=== PATIENT | male | born 1965 ===

== ENCOUNTER 2022-04-29 10:43 | Day surgery (SDC) | payer OTHER ==
[~2022-04-29] VITALS: Ht 172.7 cm; Wt 81.2 kg
[2022-04-29] VITALS (11 sets, daily range): BP systolic 110–128; BP diastolic 68–89
[~2022-04-29 10:43] MED LIST: ACET-2119 PO; ATOR20TA66 PO; CAPS42.514 TOP; IBUP-2697 PO; OMEP20TA43 PO; TOLN30CR6 TOP; ceFAZolin inj. 2,000 MG in dextrose 5%-water 100 ML IV ONE; famotidine 20mg tablet PO ONE; ringers solution, lacted 1,000 ML IV SCH
[2022-04-29] MEDS ORDERED: ROPIVAcaine 0.5% (5mg/ml) 30ml vial ONE ×2 (12:52→15:04)
[2022-04-29] MEDS ORDERED: epiNEPHrine 1 mg/ml inj ONE (12:53)
[2022-04-29] MEDS ORDERED: FENTANYL CITRATE/PF 50 MCG/1 ML VIAL ONE ×2 (15:02→16:24)
[2022-04-29] MEDS ORDERED: midazolam 1 mg/ML 2ml injection ONE (15:02)
[2022-04-29] MEDS ORDERED: ondansetron/PF 4mg/2ml inj ONE (15:03)
[2022-04-29] MEDS ORDERED: LIDOcaine 2% (20mg/ml) 5ml vial ONE (15:04)
[2022-04-29] MEDS ORDERED: propofol inj 20 ML IV ONE (15:04)
[2022-04-29] MEDS ORDERED: acetaminophen 1000 MG/100ml vial IV ONE (15:09)
[2022-04-29] MEDS ORDERED: sevoflurane 250ml liquid IH ONE (15:09)
[2022-04-29] MEDS ORDERED: morphine 4 MG/ML inj SYRINge IV PRN (15:10)
[2022-04-29] MEDS ORDERED: labetalol 20mg/4ml (5mg/ml) syringe IV PRN (15:10)
[2022-04-29] MEDS ORDERED: ringers solution, lacted 1,000 ML IV SCH (15:10)
[2022-04-29] MEDS ORDERED: ondansetron/PF 4mg/2ml inj IV PRN (15:10)
[2022-04-29] MEDS ORDERED: fentaNYL/PF 50MCG/1 ML 2ML syringe IV PRN ×2 (15:10)
[2022-04-29] MEDS ORDERED: hydrALAZINE 20mg/ml inj. IV PRN (15:10)
[2022-04-29] MEDS ORDERED: morphine 2 MG/ML inj. syringe IV PRN (15:10)
[2022-04-29] MEDS ORDERED: dexamethasone sod phosphate 4mg/ml inj. ONE (15:47)
[2022-04-29] MEDS ORDERED: ePHEDrine 50MG/ML INJ. ONE (16:10)
[2022-04-29] MEDS ORDERED: ketorolac trometh. 30mg/ml inj. ONE (16:20)
[2022-04-29] MEDS ORDERED: ROPIVAcaine 0.5% (5mg/ml) 30ml vial IJ ONE (16:31)
--- NOTE | 2022-04-29 17:11 | NUR ---
Received from OR via [facility], accompanied by Anesthesiologist DR MITTAL and report given by Anesthesiologist AND PRODUCTION TEAM MEMBER. PT DROWSY, DENIES PAIN, LEFT KNEE W/LAVELLE WRAP CDI, LEG BRACE ON. Addendum: 04/29/22 at 1755 by Jovanna Sams RN Amended: Links added.
[2022-04-29] MEDS ORDERED: HYDROcodone/acetaminophen 10/325mg tab PO ONE (18:25)
--- NOTE | 2022-04-29 18:51 | NUR ---
D/C CRITERIA MET, PAIN TOLERABLE, PAIN PILL GIVEN FOR RIDE BACK TO FACILITY. D/C INSTRUCTIONS GIVEN TO STATE OFFICERS. PT D/C D VIA W/C TO STATE CORRECTIONAL VAN W/O INCIDENT. Addendum: 04/29/22 at 1910 by Jovanna Sams RN Amended: Links added.
== END 2022-04-29 18:51 ==
LOC: PAS 10:43
PROVIDERS: ATTEND Orthopaedic Surgery
DX: S83.512A Sprain of anterior cruciate ligament of left knee, initial encounter (principal); M23.52 Chronic instability of knee, left knee; K21.9 Gastro-esophageal reflux disease without esophagitis; G89.18 Other acute postprocedural pain; S83.282A Other tear of lateral meniscus, current injury, left knee, initial encounter; Z87.891 Personal history of nicotine dependence; Z79.899 Other long term (current) drug therapy; X58.XXXA Exposure to other specified factors, initial encounter; Y93.9 Activity, unspecified; Y99.9 Unspecified external cause status; Y92.9 Unspecified place or not applicable
CPT/HCPCS: 29881; 29888; 64447; 76942; 82948; C1713; C1762; J0131; J0690; J1100; J1885; J2250; J2405; J2704; J2795; J3010; J3490; J7030; J7060; J7120; L1832; Z7506; Z7508; Z7512; A4215; A4618; A6449; A7000; J0171